=== PATIENT | male | born 1990 | race African-American/Black ===

== ENCOUNTER 2020-03-13 19:29 | Emergency (ER) | payer MEDICAID, OTHER ==
[~2020-03-13] VITALS: Ht 177.8 cm; Wt 104.3 kg
[2020-03-13] MEDS ORDERED: MORPHINE SULFATE INJ 2 MG/ML DISP.SYRIN IV ONE (20:00)
[2020-03-13] MEDS ORDERED: MAG HYDROX/AL HYDROX/SIMETH 30 ML UDC PO ONE (20:00)
[2020-03-13] MEDS ORDERED: PANTOPRAZOLE 40 MG VIAL IV ONE (20:00)
[2020-03-13] MEDS ORDERED: LIDOCAINE VISCOUS 2% UD 15 ML UDC MM ONE (20:00)
[2020-03-13] MEDS ORDERED: ONDANSETRON HCL/PF 4 MG/2 ML VIAL IVP ONE (20:00)
[2020-03-13] MEDS ORDERED: IV NS 0.9% 1,000 ML BAG IV ONE (20:00)
[2020-03-13 20:09] LABS: BASOPHILS % (AUTO) 0.4 % (0.0-2.0); EOSINOPHILS % (AUTO) 1.9 % (0.0-6.0); HEMATOCRIT 40 % (39-51); HEMOGLOBIN 13.4 g/dL (13.5-17.5); LYMPHOCYTES # (AUTO) 2.8 /CMM (0.8-4.8); LYMPHOCYTES % (AUTO) 36.1 % (20.0-44.0); MEAN CORPUSCULAR HGB CONC 34 g/dl (31.0-36.0); MEAN CORPUSCULAR VOLUME 88 fL (80-96); MONOCYTES # (AUTO) 0.6 /CMM (0.1-1.30); MONOCYTES % (AUTO) 7.3 % (2.0-12.0); NEUTROPHILS # (AUTO) 4.2 /CMM (1.8-8.9); NEUTROPHILS % (AUTO) 54.3 % (43.0-81.0); PLATELET COUNT (AUTO) 276 /CMM (150-450); RED BLOOD CELL COUNT(AUTO) 4.54 MIL/uL (4.5-6.0); WHITE BLOOD COUNT (AUTO) 7.7 K/uL (4.3-11.0)
--- NOTE | 2020-03-13 20:10 | NUR ---
Note undone in EDM - 03/13/20 at 2110 by IMELDA BIBRA TOER BED 12. INTOXICATED SMELLS OF ALCOHOL. SLEEPING BUT EASILY ARROUSABLE. NOTY IN RESP DISTRESS. CAME IN FOR ABDOMINAL PAIN X 2 DAY. PT ALSO COMPLAINS OF NAUSEA. MD WAS AT BEDSIDE FOR EVAL. ORDERS RECEIVED NOTED AND CARRIED OUT. IV LINE OBTAINED ON L HAND 18G. BLOOD DRAWN BY STORE RECEIVING SPECIALIST.
--- NOTE | 2020-03-13 20:10 | NUR ---
BIBRA TOER BED 12. INTOXICATED SMELLS OF ALCOHOL. SLEEPING BUT EASILY ARROUSABLE. NOTY IN RESP DISTRESS. CAME IN FOR ABDOMINAL PAIN X 2 DAY. PT ALSO COMPLAINS OF NAUSEA. 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 MD WAS AT BEDSIDE FOR EVAL. ORDERS RECEIVED NOTED AND CARRIED OUT. IV LINE OBTAINED ON L HAND 18G. BLOOD DRAWN BY PROSTHETIC ASSISTANT.
[2020-03-13] MEDS ORDERED: ONDANSETRON HCL/PF 4 MG/2 ML VIAL ONE (20:12)
[2020-03-13] MEDS ORDERED: PANTOPRAZOLE 40 MG VIAL ONE (20:12)
[2020-03-13] MEDS ORDERED: MORPHINE SULFATE INJ 4 MG/ML DISP.SYRIN ONE (20:12)
[2020-03-13 20:30] LABS: CALCIUM, SERUM 8.3 mg/dL (8.5-10.1); CREATININE 1.1 mg/dL (0.6-1.3); POTASSIUM 3.4 mmol/L (3.5-5.1)
[2020-03-13 20:37] LABS: ALBUMIN 3.6 g/dL (3.4-5.0); BILIRUBIN,DIRECT 0.2 mg/dL (0.0-0.2); BILIRUBIN,TOTAL 0.7 mg/dL (0.2-1.0); TOTAL PROTEIN, SERUM 6.8 g/dL (6.4-8.2)
[2020-03-13] MEDS ORDERED: OLANZAPINE 10 MG VIAL IM ONE ×2 (20:59→21:00)
--- NOTE | 2020-03-13 21:00 | NUR ---
PT IS NOTED AGITATED, ARGUING WITH STAFF. BRAULIO RAMIREZ MADE AWARE. RECEIVED ORDER TO GIVE ZYPREXA 5MG IM X 1.
--- NOTE | 2020-03-13 21:05 | NUR ---
PT IS AMBULATORY ON STEADY GAIT TO BATHROOM.
--- NOTE | 2020-03-13 21:05 | NUR ---
URINE SENT TO LAB
[2020-03-13 21:26] LABS: APPEARANCE,URINE Clear (CLEAR); BILIRUBIN,URINE Negative (NEGATIVE); BLOOD, URINE Negative Ery/uL (NEGATIVE); COLOR,URINE Yellow (YELLOW); KETONES,URINE Negative (NEGATIVE); LEUKOCYTE ESTERASE ,URINE Negative (NEGATIVE); NITRITE, URINE Negative (NEGATIVE); PH,URINE 5.5 (5.0-8.0); PROTEIN,URINE Negative (NEGATIVE); UGLUCOSE Negative (NEGATIVE); UROBILINOGEN,URINE 0.2 EU/dL (0.2)
--- NOTE | 2020-03-13 21:36 | NUR ---
Patient discharged to home in stable condition. Written and verbal after care instructions given. Patient verbalizes understanding of instruction.IV removed. Catheter intact and site benign. Pressure and 4x4 applied to site. No bleeding noted. Pt ambulatory with a steady gait
[2020-03-13 21:39] VITALS: BP 131/79
== END 2020-03-13 21:59 | disposition home or self-care (01) ==
LOC: ER 19:30
DX: K29.20 Alcoholic gastritis without bleeding (principal); F10.129 Alcohol abuse with intoxication, unspecified; F17.200 Nicotine dependence, unspecified, uncomplicated; R11.10 Vomiting, unspecified; Z98.890 Other specified postprocedural states; Z59.0 Homelessness; Y90.6 Blood alcohol level of 120-199 mg/100 ml
CPT/HCPCS: 36415; 80048; 80076; 80307; 81001; 83690; 85025; 96361; 96372; 96374; 96375; 99284; C9113; J2270; J2405; J3490; J7030; 81000-TC; G0480